=== PATIENT | female | born 1990 | race Caucasian/White ===

== ENCOUNTER 2018-04-07 09:03 | Day surgery (SDC) | payer BC ==
[~2018-04-07] VITALS: Ht 165.1 cm; Wt 111.1 kg
[~2018-04-07 09:03] MED LIST: AYGESTIN5 MG PO; BIRTH CONTROL PILL; CELEXA10 MG PO; FEOSOL325 MG PO; NAPROSYN500 MG PO; NON-ASPIRIN PA500 M1 PO; PRENATAL TABLE1 EAC3 PO; ULTRAM50 MG PO; VIBRAMYCIN100 MG PO
[2018-04-07 09:56] LABS: BASOPHIL (%) 0.5 % (0-1); BASOPHIL COUNT 0.1 K/uL (0-0.1); EOSINOPHIL (%) 2.4 % (0-5); EOSINOPHIL COUNT 0.2 K/uL (0-0.3); HEMATOCRIT 33.9 % (36.0-46.0); HEMOGLOBIN 10.6 G/DL (11.9-15.5); IMMATURE GRANULOCYTE (%) 0.2 % (0.0-0.7); LYMPHOCYTE (%) 28.5 % (15-42); LYMPHOCYTE COUNT 2.7 K/uL (1.0-2.8); MCH 24.1 PG (29.0-34.0); MCHC 31.3 G/DL (30.0-36.0); MCV 77.2 FL (83-99); MONOCYTE (%) 6.8 % (3-12); MONOCYTE COUNT 0.6 K/uL (0-0.8); NEUTROPHIL (%) 61.6 % (45-76); NEUTROPHIL COUNT 5.8 K/uL (1.8-6.4); PLATELET COUNT 357 K/uL (156-360); RED BLOOD COUNT 4.39 M/uL (3.80-5.20); WHITE BLOOD COUNT 9.4 K/uL (4.1-10.2)
[2018-04-07 10:02] LABS: INTER. NORMALIZED RATIO 1.1
[2018-04-07 10:05] LABS: PTT 24.6 SEC (25-37)
[2018-04-07 10:14] VITALS: BP 125/70
[2018-04-07 14:00] VITALS: BP 126/78
[2018-04-07 15:00] VITALS: BP 132/74
== END 2018-04-07 15:00 | disposition home or self-care (01) ==
LOC: SDC 09:03
PROVIDERS: Obstetrics & Gynecology
DX: N84.0 Polyp of corpus uteri (principal); N93.8 Other specified abnormal uterine and vaginal bleeding; E66.9 Obesity, unspecified; Z68.41 Body mass index [BMI] 40.0-44.9, adult; F41.9 Anxiety disorder, unspecified
CPT/HCPCS: 81025; 85025; 85610; 85730; 86850; 86900; 86901; 88305; J0330; J0690; J1170; J1885; J2405; J2765; J3010